=== PATIENT | male | born 1965 | race Caucasian/White ===

== ENCOUNTER 2017-02-24 03:56 | Observation (INO) | payer MEDICAID ==
[~2017-02-24] VITALS: Ht 165.1 cm; Wt 172.0 kg
[2017-02-24] MEDS ORDERED: BACL-19 PO (04:30)
[2017-02-24] MEDS ORDERED: OMEP-110 PO (04:30)
[2017-02-24] MEDS ORDERED: DIVA500T9 PO (04:30)
[2017-02-24] MEDS ORDERED: PROM25SU34 PO (04:30)
[2017-02-24] MEDS ORDERED: SERT100T5 PO (04:30)
[2017-02-24] MEDS ORDERED: PROP40TA PO (04:30)
[2017-02-24] MEDS ORDERED: DIPHENHYDRAMINE 50 MG/ML, 1ML IVPush ONE (05:30)
[2017-02-24] MEDS ORDERED: PROCHLORPERAZINE 5 MG/ML, 2ML IVPush ONE (05:30)
[2017-02-24] MEDS ORDERED: SODIUM CHLORIDE 0.9% 1,000ML IVBOLUS ONE (05:30)
[2017-02-24] MEDS ORDERED: SODIUM CHLORIDE FLUSH 10ML SYR IVF ONE (05:30)
[2017-02-24] MEDS ORDERED: KETOROLAC 30 MG/1 ML IVPush ONE (05:30)
[2017-02-24] MEDS ORDERED: KETOROLAC 30 MG/1 ML ONE (06:04)
[2017-02-24] MEDS ORDERED: PROCHLORPERAZINE 5 MG/ML, 2ML ONE (06:04)
[2017-02-24] MEDS ORDERED: DIPHENHYDRAMINE 50 MG/ML, 1ML ONE (06:04)
[2017-02-24 06:12] LABS: DAU SCREEN DISCLAIMER
[2017-02-24 06:30] LABS: BLOOD UREA NITROGEN 14 mg/dL (7-18)
[2017-02-24 06:33] LABS: ASPARTATE AMINO TRANSFERASE 22 U/L (15-37)
[2017-02-24 06:38] LABS: ACETAMINOPHEN < 2 mcg/mL (10-30)
[2017-02-24] MEDS ORDERED: CIPROFLOXACIN 500 MG TABLET PO ONE (07:00)
[2017-02-24] MEDS ORDERED: CIPROFLOXACIN 500 MG TABLET ONE (07:26)
[2017-02-24] MEDS ORDERED: POTASSIUM CHLORIDE 20 MEQ TAB.ER.PRT ONE (08:44)
[2017-02-24] MEDS: POTASSIUM CHLORIDE 20 MEQ TAB.ER.PRT PO SCH (08:46)
[2017-02-24] MEDS ORDERED: SODIUM CHLORIDE 0.9% 1,000 ML IV SCH (09:23)
[2017-02-24] MEDS ORDERED: ONDANSETRON 2MG/ML, 2ML IVP PRN (09:30)
[2017-02-24] MEDS ORDERED: MAGNESIUM SULFATE PMX 2GM/50ML 50 ML IV ONE (09:30)
[2017-02-24] MEDS ORDERED: ACETAMINOPHEN 325 MG TABLET PO PRN (09:30)
[2017-02-24] MEDS ORDERED: ONDANSETRON ODT 4 MG PO PRN (09:30)
[2017-02-24] MEDS ORDERED: HYDROcodone/APAP 5/325 TABLET PO PRN (09:30)
[2017-02-24] MEDS ORDERED: POTASSIUM PHOSPHATE 22 MEQ in SODIUM CHLORIDE 0.9% 500 ML IV ONE (10:00)
[2017-02-24] MEDS: ASCORBIC ACID 500 MG TABLET PO SCH (10:00)
[2017-02-24 10:29] VITALS: BP 99/67
[2017-02-24 10:36] VITALS: BP 99/67
[2017-02-24] MEDS ORDERED: PROMETHAZINE 25 MG SUPP PR PRN (11:00)
[2017-02-24] MEDS: NEUTRA PHOS K 250 MG TABLET PO SCH ×2 (11:00→22:46)
[2017-02-24] MEDS: FERROUS SULFATE 325 MG TABLET PO SCH ×2 (12:51→16:45)
[2017-02-24] MEDS: METHOCARBAMOL 750 MG TABLET PO SCH ×3 (12:51→22:45)
[2017-02-24] MEDS: DIVALPROEX 500 MG TABLET.DR PO SCH (12:51)
[2017-02-24] MEDS: OMEPRAZOLE 20 MG CAPSULE.DR PO SCH (12:52)
[2017-02-24] MEDS: KETOROLAC 30 MG/1 ML IVPush SCH ×3 (13:02→22:45)
[2017-02-24] MEDS: ENOXAPARIN 40 MG/0.4 ML SQ SCH (13:03)
[2017-02-24 13:43] VITALS: BP 96/61
[2017-02-24 18:43] VITALS: BP 104/64
[2017-02-24] MEDS: CEFDINIR 300 MG CAPSULE PO SCH (22:45)
[2017-02-24] MEDS: PROPRANOLOL 40 MG TABLET PO SCH (22:46)
[2017-02-25 01:45] VITALS: BP 100/63
[2017-02-25 05:02] LABS: BLOOD UREA NITROGEN 19 mg/dL (7-18)
[2017-02-25] MEDS: METHOCARBAMOL 750 MG TABLET PO SCH ×3 (05:50→16:10)
[2017-02-25 06:37] VITALS: BP 97/67
[2017-02-25] MEDS: KETOROLAC 30 MG/1 ML IVPush SCH ×2 (08:51→16:10)
[2017-02-25] MEDS: OMEPRAZOLE 20 MG CAPSULE.DR PO SCH (08:51)
[2017-02-25] MEDS: DIVALPROEX 500 MG TABLET.DR PO SCH (08:52)
[2017-02-25] MEDS: PROPRANOLOL 40 MG TABLET PO SCH (08:52)
[2017-02-25] MEDS: CEFDINIR 300 MG CAPSULE PO SCH (08:52)
[2017-02-25] MEDS: FERROUS SULFATE 325 MG TABLET PO SCH ×3 (08:52→16:10)
[2017-02-25] MEDS: POTASSIUM CHLORIDE 20 MEQ TAB.ER.PRT PO SCH (08:52)
[2017-02-25] MEDS: ASCORBIC ACID 500 MG TABLET PO SCH (08:53)
[2017-02-25] MEDS: ENOXAPARIN 40 MG/0.4 ML SQ SCH (08:53)
[2017-02-25] MEDS ORDERED: SERTRALINE 50MG TABLET PO SCH (09:00)
[2017-02-25 13:13] VITALS: BP 101/66
[2017-02-25] MEDS ORDERED: FERR325T20 PO (13:20)
[2017-02-25] MEDS ORDERED: CEFD300C37 PO (13:20)
[2017-02-25] MEDS ORDERED: METH750T2 PO (13:20)
[2017-02-25] MEDS ORDERED: ASCO500T6 PO (13:20)
[2017-02-25] MEDS ORDERED: IBUP800T PO (13:20)
[2017-02-25] MEDS ORDERED: DOCU-30 PO (13:20)
== END 2017-02-25 16:50 | disposition home or self-care (01) ==
LOC: ED 06:57 → EDIP 06:58 → ED 07:07 → 3NE 10:25
PROVIDERS: ADMIT Hospitalist; ATTEND Hospitalist
DX: R45.851 Suicidal ideations (principal); F33.1 Major depressive disorder, recurrent, moderate; M54.2 Cervicalgia; G89.29 Other chronic pain; D72.829 Elevated white blood cell count, unspecified; D50.9 Iron deficiency anemia, unspecified; E87.6 Hypokalemia; J30.9 Allergic rhinitis, unspecified; K21.9 Gastro-esophageal reflux disease without esophagitis; L30.9 Dermatitis, unspecified; F43.21 Adjustment disorder with depressed mood; F43.10 Post-traumatic stress disorder, unspecified; Z91.5 Personal history of self-harm; F41.9 Anxiety disorder, unspecified
CPT/HCPCS: 36415; 70450; 71020; 80048; 80053; 80307; 80329; 81001; 82728; 83540; 83550; 83735; 84100; 84443; 84466; 85025; 87086; 96361; 96365; 96372; 96375; 96376; 97163; 99285; G0378; J0780; J1200; J1650; J1885; J3475; J7030; G0480

== ENCOUNTER 2017-09-06 16:02 | Emergency (ER) | payer MEDICAID ==
[~2017-09-06] VITALS: Ht 165.1 cm; Wt 78.5 kg
[~2017-09-06 16:02] MED LIST: ASCO500T6 PO; BACL-19 PO; CEFD300C37 PO; DIVA-68 PO; DOCU-131 PO; FERR325T18 PO; IBUP-1223 PO; METH750T2 PO; OMEP-110 PO; PROM25SU34 PO; PROP40TA PO; SERT100T5 PO
[2017-09-06] MEDS ORDERED: SODIUM CHLORIDE 0.9% 1,000 ML IV ONE (16:19)
[2017-09-06] MEDS ORDERED: TRAM50TA2 PO (16:23)
[2017-09-06] MEDS ORDERED: RANI150C PO (16:23)
[2017-09-06] MEDS ORDERED: BACL-19 PO (16:23)
[2017-09-06] MEDS ORDERED: FAMOTIDINE 20 MG/2 ML ONE (16:26)
[2017-09-06] MEDS ORDERED: ONDANSETRON 2MG/ML, 2ML ONE (16:26)
[2017-09-06] MEDS ORDERED: SODIUM CHLORIDE 0.9% 1,000ML IVBOLUS ONE (16:30)
[2017-09-06] MEDS ORDERED: FAMOTIDINE 20 MG/2 ML IVP ONE (16:30)
[2017-09-06] MEDS ORDERED: ONDANSETRON 2MG/ML, 2ML IVPush ONE (16:30)
[2017-09-06 17:00] LABS: HEMATOCRIT 45.4 % (39.2-51.8); HEMOGLOBIN 15.3 g/dL (13.7-18.0); WHITE BLOOD COUNT 19.9 x10^3/uL (3.4-10)
[2017-09-06 17:06] LABS: ASPARTATE AMINO TRANSFERASE 35 U/L (15-37); BLOOD UREA NITROGEN 15 mg/dL (7-18)
[2017-09-06 17:11] LABS: DIFF TOTAL CELLS COUNTED 100 CELL DIFF
[2017-09-06 17:47] LABS: VERIFY COUNTS? YES
[2017-09-06 17:50] VITALS: BP 108/72
[2017-09-06 17:59] LABS: ANISOCYTOSIS 1+
== END 2017-09-06 18:14 | disposition home or self-care (01) ==
LOC: ED 18:08
DX: A08.4 Viral intestinal infection, unspecified (principal); R55 Syncope and collapse; K21.9 Gastro-esophageal reflux disease without esophagitis; G89.29 Other chronic pain
CPT/HCPCS: 36415; 80053; 83690; 85025; 93005; 96361; 96374; 96375; 99285; J2405; J7030; S0028